=== PATIENT | female | born 1980 | race Caucasian/White ===

== ENCOUNTER 2021-12-13 16:04 | Emergency (ER) | payer BC, SELFPAY ==
[2021-12-13 16:05] VITALS: BP 134/88; PULSE 107; RESP 20; TEMP 36.5; O2SAT 100
[2021-12-13 16:09] VITALS: BP 134/88; PULSE 105; RESP 20; TEMP 36.2; O2SAT 100; BMI 22.4
--- NOTE | 2021-12-13 16:20 | EX.ED.DYSGE1 ---
HPI History of Present Illness Chief Complaint: Dizziness Detail of Chief Complaint: Not feeling well while driving today Informant: patient Narrative Narrative: Patient presents to the emergency department via EMS with complaint of not feeling well. Patient states that she was driving from her father's house to [place] when she started feeling quite shaky and she developed numbness and tingling in both legs and both arms. Her face became tingly. Patient pulled over as she had her kids in the car with her and she put her head between her legs and waited to see if symptoms would pass and they did not. EMS was called. Patient states that she just does not feel right and she is never felt this way before. She has had history of some anxiety and has had 2 episodes of panic attacks in her adult life but nothing like this. Patient still feels shaky. She was recently treated for UTI with Keflex and her symptoms seem to be improved. She denies recent illness otherwise. Prior similar symptoms: No PFSH PFSH Home Medications lorazepam [Ativan] 1 mg PO TID PRN #10 tab 12/13/21 [Rx Last Taken Unknown] nitrofurantoin monohyd/m-cryst [Macrobid] 100 mg PO Q12H 7 Days #14 cap 12/13/21 [Rx Last Taken Unknown] Allergy/AdvReac Type Severity Reaction Status Date / Time ciprofloxacin [From Cipro] AdvReac Nausea Verified 12/13/21 16:18 sulfamethoxazole AdvReac Hives Verified 12/13/21 16:18 [From Bactrim] trimethoprim [From Bactrim] AdvReac Hives Verified 12/13/21 16:18 Social History Smoking Status: Never smoker ROS ROS ED ROS Narrative Shaky Constitutional Constitutional ED: Reports systems reviewed and no addt'l complaints, except as documented; Denies body ache(s), change in weight or chills Eyes Eyes: Denies acute decrease in peripheral vision, change in vision, double vision or loss of vision ENT ENT ED: Reports none; Denies ear pain, lip swelling, loss taste/smell, neck pain, otalgia or sore throat Cardiovascular Cardiovascular: Reports none; Denies abdominal pain, chest pain with activity, leg edema, lightheadedness, palpitations, rapid heart rate or syncope Respiratory/Chest Respiratory/Chest: Reports none; Denies change in mental status, dry cough, dyspnea, hemoptysis, shortness of breath at rest or shortness of breath with exertion Gastrointestinal Gastrointestinal: Reports none; Denies abdominal pain, change in stool character, diarrhea, hematemesis, hematochezia, melena, rectal bleeding or vomiting Genitourinary Genitourinary ED: Reports none; Denies abdominal discomfort, anuria, dysuria, genital pain or polyuria Musculoskeletal Musculoskeletal: Reports none; Denies arthralgias, back pain, difficulty walking, extremity pain, muscle weakness or myalgias Integumentary Reports none; Denies abscess or rash Neurologic Neurologic: Reports none and paresthesias; Denies abnormal gait, confusion, focal weakness, frequent falls, headache(s), loss of vision, numbness, radicular pain, vertigo or weakness Psychiatric Psychiatric: Reports systems reviewed and no addt'l complaints, except as documented and none; Denies behavioral changes, confusion, difficulty concentrating, hallucinations, suicidal ideation, tactile hallucinations or visual hallucinations Endocrine Endocrinology: Denies none, cold intolerance, excessive sweating, fatigue or heat intolerance Hematologic/Lymphatic Hematologic/Lymphatic: Reports none; Denies anemia, easy bleeding or easy bruising Allergic/Immunologic Allergic/Immunologic ED: Denies as per HPI, none, lip swelling, mouth swelling, throat swelling, tongue swelling or hives EXAM Physical Exam Const Vital Signs: 12/13/21 16:05 12/13/21 16:09 12/13/21 16:14 Temperature 97.7 F L 97.2 F L Temperature Source Temporal Temporal Pulse Rate 107 H 105 H Respiratory Rate 20 H 20 H Respiratory Effort Normal Non-Labored Respiratory Pattern Normal Blood Pressure 134/88 H 134/88 H Blood Pressure Mean 103 103 Pulse Ox 100 100 Oxygen Delivery Method Room Air Room Air 12/13/21 17:35 12/13/21 17:55 Temperature Temperature Source Pulse Rate 102 H 91 Respiratory Rate 14 Respiratory Effort Respiratory Pattern Blood Pressure 120/79 119/76 Blood Pressure Mean 92 90 Pulse Ox 100 Oxygen Delivery Method Room Air Positive well nourished and well developed General Appearance ED: well developed and NAD HEENT Reports TM's clear and moist mucous membranes normocephalic and atraumatic; Negative for trauma or tenderness Tympanic Membrane ED: Yes TM's clear Eyes PERRL and EOMs intact bilaterally General Eye ED: Negative for pale conjunctiva or scleral icterus Neck no lymphadenopathy, supple and no JVD General: Negative for tenderness Chest Wall inspection of chest normal and palpation of chest normal Chest: Negative for tenderness Resp normal respiratory effort and clear to auscultation bilaterally Effort and Inspection: Negative for respiratory distress or pain with movement Auscultation: Negative for rhonchi, wheezes or diminished lung sounds Cardio regular rate, regular rhythm, S1 normal heart sound, S2 normal heart sound and no murmurs Peripheral Pulses: pulses 2+ throughout GI normal to inspection, nondistended, normoactive bowel sounds, soft to palpation, non-tender, non-distended and no masses Back/Spine no CVA tenderness and no thoracic nor lumbar tenderness Extremity normal to inspection General Extremety ED: Negative for edema General Extremity: Negative for edema Neuro oriented x3, CN's II-XII intact bilaterally, no sensory deficits noted and gait normal Neuro Narrative: No focal neurologic deficits Sensorium / Orientation: awake, alert, oriented to person, oriented to place and oriented to time Motor Exam: strength 5/5 throughout and strength abnormal Psych mental status grossly normal Skin no rashes or lesions noted and no wounds MDM MDM MDM Narrative Medical decision making narrative: Established on arrival. Patient was given a milligram of Ativan IV and her symptoms did mostly resolved. Her lab work-up was unremarkable other than she did have a slightly low potassium of 3.3 for which I did give her 40 mEq of potassium chloride p.o. Her serum hCG was negative. Urinalysis did show signs of UTI with 5 leukocyte Estrace and 5200 WBCs but no bacteria and she was negative for nitrites. I did send off a urine culture. Patient was started on Macrobid 100 mg p.o. At this point I suspect an anxiety component. Patient will be given a prescription for Ativan and also Macrobid. She is to follow-up with her primary care physician within next 3 to 5 days. Lab Data Attestation: I reviewed the patient's lab results. Labs: Laboratory Results - last 24 hr 12/13/21 12/13/21 12/13/21 16:15 16:15 16:15 WBC 8.0 RBC 4.12 L Hgb 12.6 Hct 36.4 L MCV 88.3 MCH 30.6 MCHC 34.6 RDW Std Deviation 40.2 RDW Coeff of Apurva 12.4 Plt Count 353 MPV 9.1 Immature Gran % (Auto) 0.100 Neut % (Auto) 58.3 Lymph % (Auto) 35.1 [place] % (Auto) 3.9 Eos % (Auto) 1.8 Baso % (Auto) 0.8 Absolute Neuts (auto) 4.7 Absolute Lymphs (auto) 2.79 Nucleated RBC % 0 Sodium 139 Potassium 3.3 L Chloride 110 H Carbon Dioxide 21.0 Anion Gap 8 BUN 18 Creatinine 1.04 H Estim Creat Clear Calc 69.23 Est GFR (MDRD) Af Amer 75 Est GFR (MDRD) Non-Af 62 BUN/Creatinine Ratio 17.3 Glucose 172 H Calcium 9.0 Serum , Qual NEGATIVE Urine Color Urine Clarity Urine pH Ur Specific [place] Urine Protein Urine Glucose (UA) Urine Ketones Urine Occult Blood Urine Nitrite Urine Bilirubin Urine Urobilinogen Ur Leukocyte Esterase Urine RBC Urine WBC Ur Squamous Epith Cells Urine Bacteria Urine Mucus 12/13/21 17:29 WBC RBC Hgb Hct MCV MCH MCHC RDW Std Deviation RDW Coeff of Apurva Plt Count MPV Immature Gran % (Auto) Neut % (Auto) Lymph % (Auto) [place] % (Auto) Eos % (Auto) Baso % (Auto) Absolute Neuts (auto) Absolute Lymphs (auto) Nucleated RBC % Sodium Potassium Chloride Carbon Dioxide Anion Gap BUN Creatinine Estim Creat Clear Calc Est GFR (MDRD) Af Amer Est GFR (MDRD) Non-Af BUN/Creatinine Ratio Glucose Calcium Serum , Qual Urine Color Yellow Urine Clarity Cloudy Urine pH 7.0 Ur Specific [place] 1.010 Urine Protein 100 H Urine Glucose (UA) Normal Urine Ketones Negative Urine Occult Blood 25 H Urine Nitrite Negative Urine Bilirubin Negative Urine Urobilinogen Normal Ur Leukocyte Esterase 500 H Urine RBC 0 SEEN Urine WBC 50-100 SEEN Ur Squamous Epith Cells 5-10 SEEN Urine Bacteria 0 SEEN Urine Mucus 0 SEEN Discharge Plan Triage Chief Complaint: Dizziness ED Provider: Rosana Lopez Dx/Rx/DC Orders Clinical Impression: Anxiety reaction, UTI (urinary tract infection) Instructions: ED Anxiety Reaction, ED CYSTITIS Female Adult Prescriptions: New nitrofurantoin monohyd/m-cryst [Macrobid] 100 mg capsule 100 mg PO Q12H 7 Days Qty: 14 RF: 0 lorazepam [Ativan] 1 mg tablet 1 mg PO TID PRN (Reason: anxiety) Qty: 10 RF: 0 Referrals: Sarah Dang [Other] Activity Restrictions/Additional Instructions: See your primary care physician in 3 to 5 days Disposition Disposition: Home, Self Care
[2021-12-13] MEDS: 0.9% Normal Saline 1,000 ML 150 ML IV (16:32)
[2021-12-13] MEDS: LORazepam 2 MG/ML Syringe 1 MG IV (16:32)
[2021-12-13 16:38] LABS: Absolute Lymphocyte Count 2.79 X10^3/uL (0.83-4.51); Absolute Neutrophil Count 4.7 X10^3/uL (2.0-7.7); Basophil# 0.06 X10^3/uL; Basophil% 0.8 % (0-1); Eosinophil# 0.14 X10^3/uL; Eosinophils% 1.8 % (0-5); Hematocrit 36.4 % (37-47); Hemoglobin 12.6 g/dL (12.0-15.0); Lymphocyte # 2.79 X10^3/ul (0.83-4.51); Lymphocyte % 35.1 % (19-41); Mean Corp Hgb Conc 34.6 g/dL (32-36); Mean Corpuscular Hgb 30.6 pg (27.0-32.0); Mean Corpuscular Volume 88.3 fL (81-99); Mean Platelet Vol. 9.1 fl (6.2-12.0); Monocyte# 0.31 X10^3/uL; Monocyte% 3.9 % (0-10); NRBC Flagged by Analyzer 0 % (0-5); Neutrophil # 4.65 X10^3/uL (2.7-7.7); Neutrophil % 58.3 % (47-70); Platelet Count 353 K/mm3 (150-450); RBC Distribution Width CV 12.4 % (11.6-14.6); RBC Distribution Width SD 40.2 fl (35.1-43.9); Red Blood Count 4.12 M/mm3 (4.2-5.4)
[2021-12-13 16:53] LABS: Internal QC Validated? YES +Cl - CLEAR BKGD; Pregnancy, Serum, hCG Quali. NEGATIVE Negative
[2021-12-13 16:57] LABS: Anion Gap 8 (5-15); BUN 18 mg/dL (7-18); BUN/Creat Ratio 17.3 RATIO (10-20); Chloride 110 mmol/L (98-107); Creatinine, Serum 1.04 mg/dL (0.55-1.02); EST Glomerular Filtration Rate 62 mL/min (>60); Est Glom Filt Rate - Afr Amer 75 mL/min (>60); Estimated Creatinine Clearance 69.23 ml/min; Glucose 172 mg/dL (74-106); Potassium 3.3 mmol/L (3.5-5.1); Sodium Level 139 mmol/L (136-145)
[2021-12-13] MEDS: Potassium Chloride Oral Tablet 20 MEQ 40 MEQ PO (17:34)
[2021-12-13 17:35] VITALS: BP 120/79; PULSE 102; RESP 14; O2SAT 100
[2021-12-13 17:35] LABS: Bacteria 0 SEEN /hpf (None Seen); Mucous, Urine 0 SEEN /hpf (<or=2+); Red Blood Cells-Urine 0 SEEN /hpf (0-5)
[2021-12-13 17:43] LABS: Color, Urine Yellow (Yellow); Glucose, Dipstick Normal (Normal); Ketone-Dipstick Negative (Negative); Leukocyte Esterase-Dipstick 500 /ul (Negative); Nitrite-Dipstick Negative (Negative); Occult Blood-Urine 25 /ul (Negative); Protein-Dipstick 100 mg/dl (Negative); Urine Bilirubin Dipstick Negative (Negative); Urine Clarity Cloudy (Clear); Urine Urobilinogen Normal (Normal)
[2021-12-13 17:51] LABS: Squamous Epithelial Cells - UA 5-10 SEEN /hpf (5-10); White Blood Cells 50-100 SEEN /hpf (0-5)
[2021-12-13 17:55] VITALS: BP 119/76; PULSE 91
[2021-12-13 18:15] VITALS: BP 117/73; PULSE 93; RESP 16; O2SAT 98
[2021-12-13] MEDS: Nitrofurantoin Macrocrystals 100 MG Capsule PO (18:15)
== END 2021-12-13 18:19 | disposition home or self-care (01) ==
PROVIDERS: Emergency Provider Emergency Medicine; Visit Provider Emergency Medicine
DX: N39.0 Urinary tract infection, site not specified (principal); F41.1 Generalized anxiety disorder
CPT/HCPCS: 80048; 81001; 84703; 85025; 87086; 99285; J7030; A4216